=== PATIENT | male | born 1965 | race Caucasian/White ===

== ENCOUNTER 2018-04-19 19:37 | Emergency (ER) | payer OTHER ==
[~2018-04-19] VITALS: Ht 170.2 cm; Wt 124.7 kg
[2018-04-19 19:45] VITALS: Ht 170.2 cm; Wt 124.7 kg
[2018-04-19 21:21] LABS: BASOPHIL % 0.5 % (0-2); PLATELET COUNT 139 x10^3mcL (130-400); RED CELL DISTRIBUTION WIDTH 13.7 % (11.5-14.5)
[2018-04-19 21:32] LABS: AMPHETAMINE QUAL UR NONE DETECTED (See below)
[2018-04-19 21:43] LABS: CALCIUM 8.4 mg/dL (8.5-10.1); CARBON DIOXIDE 26.2 mmol/L (21-32); CHLORIDE SERUM 106 mmol/L (98-107); CREATININE SERUM 0.8 mg/dL (0.7-1.3); GFR1 > 60 mL/min; GLUCOSE SERUM 100 mg/dL (74-106); POTASSIUM SERUM 3.8 mmol/L (3.5-5.1); SODIUM SERUM 142 mmol/L (136-145)
[2018-04-19 21:48] LABS: ALBUMIN 3.4 g/dL (3.4-5.0); ALKALINE PHOSPHATASE 91 U/L (46-116); ALT/SGPT 26 U/L (16-63); AST/SGOT 22 U/L (15-37); BILIRUBIN TOTAL 0.9 mg/dL (0.20-1.00); TOTAL PROTEIN, SERUM 7.2 g/dL (6.4-8.2)
[2018-04-19 22:54] VITALS: BP 130/87
[2018-04-19 22:57] LABS: CHOLESTEROL 207 mg/dL (<200)
== END 2018-04-19 22:54 | disposition home or self-care (01) ==
LOC: ED 19:37
PROVIDERS: Specialist
DX: L02.412 Cutaneous abscess of left axilla (principal); R20.2 Paresthesia of skin; F10.20 Alcohol dependence, uncomplicated
CPT/HCPCS: 83880; 90715; G0480; Q0092

== ENCOUNTER 2018-04-21 18:53 | Emergency (ER) | payer OTHER ==
[~2018-04-21] VITALS: Ht 170.2 cm; Wt 125.2 kg
[2018-04-21 19:08] VITALS: Ht 170.2 cm; Wt 125.2 kg
[2018-04-21 19:41] VITALS: BP 141/80
== END 2018-04-21 19:40 | disposition home or self-care (01) ==
LOC: ED 18:53
DX: Z48.01 Encounter for change or removal of surgical wound dressing (principal)